=== PATIENT | male | born 1960 | race Caucasian/White ===

== ENCOUNTER 2017-04-27 10:00 | Emergency (ER) | payer BC ==
[~2017-04-27] VITALS: Ht 180.3 cm; Wt 117.7 kg
[~2017-04-27 10:00] MED LIST: ATV1 PO; PARO1TAB27 PO
[2017-04-27 10:20] VITALS: TEMP 36.7; Ht 180.3 cm; Wt 117.7 kg
[2017-04-27] MEDS ORDERED: SODIUM CHLORIDE 0.9% 1000ML 1,000 ML IV STA (11:10)
[2017-04-27] MEDS ORDERED: ASPIRIN 81 MG CHEW PO STA (11:10)
[2017-04-27] MEDS ORDERED: NITROGLYCERIN 0.4 MG SL PER TAB CHARGE SL PRN (11:15)
--- NOTE | 2017-04-27 11:23 | EMERGENCY ROOM VISIT NOTE ---
History First contact with patient: 10:56 Chief Complaint: SHOULDER PAIN Stated Complaint: L SHOULDER PAIN,NAUSEA, SENT History of Present Illness The patient is a 56 year old male who presents to the Emergency Room with complaints of an annoying pain in his left shoulder. He states he has had some tingling radiating down his left arm associated with left shoulder and arm pain for several weeks now. He states this morning when he awoke, the pain was significantly worse. He is having difficulty sitting still, as he states being still seems to worsen the pain. He states the pain seems to improve and he is able to take his mind off of it when moving around. He states the pain really flared up while leaning on his desk and putting pressure on the left arm. He states the pain is severe today, and seems to be more of a pulsation and throbbing sensation, where normally he has been experiencing more of a sharp pain. He did have an appointment scheduled with his primary care provider today to discuss the pain, but did not make it in there. He did contact his chiropractor, Dr. Boss, who he did see. He states he stood the patient up, and he was unable to determine any specific muscular problem at the time. Dr. Boss did recommend the patient come here for a chest pain workup. Patient states the pain has been persistent and getting worse, increasing in his anterior left shoulder. He states it feels like spasms or a twisting sensation. There has been no difficulty breathing, headache, dizziness, balance disturbance, recent illness, vomiting, diaphoresis, or other associated symptoms. The patient states he has been nauseated and has been dealing with a cough for the past 2 months. The patient's suddenly 3 months ago of a myocardial infarction which was unrecognized. The patient does have a significant family history of heart disease on his paternal side. He states many of his family members have had "clogged arteries" and his father at age 72 of an abdominal aortic aneurysm. He does not have any personal history of heart disease that he is aware of. The patient is a current smoker, and states he smokes 3-4 cigarettes per day. The patient has never had symptoms like this before. Review of Systems A complete 10 point review of systems was reviewed with the patient with pertinent positives and negatives as per history of present illness. All else were negative. Past Medical/Surgical History Anxiety Social History Smoking Status: Current Every Day Smoker Smokeless Tobacco Use: No Alcohol Use: occasionally Drug Use: none Marital Status: Housing Status: lives alone Occupation Status: employed Current/Historical Medications Scheduled Cyclobenzaprine Hcl (Flexeril), 10 MG PO TID Ibuprofen (Advil), 600 MG PO UD Paroxetine (Paxil), 20 MG PO QAM Allergies Coded Allergies: No Known Allergies (Unverified , 04/27/17) Physical Exam Vital Signs Date Time Temp Pulse Resp B/P (MAP) Pulse Ox O2 Delivery O2 Flow Rate FiO2 04/27/17 13:20 66 04/27/17 12:25 59 19 135/96 04/27/17 12:22 134/90 04/27/17 11:39 134/103 04/27/17 11:37 63 19 147/100 96 Room Air 04/27/17 11:28 96 Room Air 04/27/17 11:07 62 04/27/17 10:20 36.7 71 20 188/112 96 Room Air Physical Exam VITALS: Vitals are noted on the nurse's note and reviewed by myself. Vital signs stable. GENERAL: This is a 56-year-old white male, in no acute distress, nondiaphoretic , well-developed well-nourished. SKIN: The skin was without rashes, erythema, edema, or bruising. There is no tenting of the skin. Capillary reflex less than 2 seconds. HEAD: Normocephalic atraumatic. EARS: External auditory canals clear, tympanic membranes pearly dodd without erythema or effusion bilaterally. EYES: Pupils equal round and reactive to light and accommodation. Conjunctivae without injection, sclerae without icterus. Extraocular movements intact. NOSE: Patent, turbinates without inflammation or discharge. No sinus tenderness. MOUTH: Mucous membranes moist. Tonsils are not enlarged. Pharynx without erythema or exudate. Uvula midline. Airway patent. Tongue does not deviate. NECK: Supple without nuchal rigidity. No lymphadenopathy. No thyromegaly. Cervical spine is nontender. No JVD. HEART: Regular rate and rhythm without murmurs gallops or rubs. LUNGS: Clear to auscultation bilaterally without wheezes, rales or rhonchi. No dullness to percussion. No retractions or accessory muscle use. ABDOMEN: Positive bowel sounds x 4. Normal tympanic percussion. Soft, nontender, without masses or organomegaly. Daniels sign negative. No guarding or rebound tenderness. MUSCULOSKELETAL: No muscle atrophy, erythema, or edema noted. Full range of motion without joint tenderness in all extremities. No tenderness to palpation , specifically no reproducible tenderness of the left shoulder or anterior chest wall. Normal gait. Strength 5/5 throughout. NEURO: Patient was alert and oriented to person place and time. Normal sensation to light and sharp touch. Deep tendon reflexes 2+ throughout. No focal neurological deficits. Medical Decision & Procedures ER Provider Diagnostic Interpretation: L SHOULDER MIN 2 VIEWS ROUTINE CLINICAL HISTORY: 56 years-old Male presenting with left shoulder pain. TECHNIQUE: Internal rotation, external rotation, Grashey views of the left shoulder were obtained. COMPARISON: None. FINDINGS: Glenohumeral and acromioclavicular joints congruent. No acute fracture or malalignment. No advanced degenerative change. No radiographic soft tissue abnormality. IMPRESSION: No acute osseous injury. Electronically signed by: Lee Benson M.D. 04/27/2017 12:07 PM Dictated Date/Time: 04/27/2017 12:06 PM CHEST 2 VIEWS ROUTINE CLINICAL HISTORY: 56 years-old Male presenting with CHEST PAIN. TECHNIQUE: PA and lateral views of the chest were obtained. COMPARISON: None. FINDINGS: Cardiomediastinal silhouette normal. Lungs and pleural spaces clear. Degenerative changes of the thoracic spine. Right axillary surgical clips noted. Surgical clips also project over the right lung base, likely in the right breast. Upper abdomen normal. IMPRESSION: 1. No acute cardiopulmonary disease. Laboratory Results 04/27/17 11:16 Red Blood Count 5.13, Mean Corpuscular Volume 88.1, Mean Corpuscular Hemoglobin 30.4, Mean Corpuscular Hemoglobin Concent 34.5, Mean Platelet Volume 9.7, Neutrophils (%) (Auto) 67.4, Lymphocytes (%) (Auto) 22.7, Monocytes (%) (Auto) 5.8, Eosinophils (%) (Auto) 3.5, Basophils (%) (Auto) 0.3, Neutrophils # (Auto) 4.27, Lymphocytes # (Auto) 1.44, Monocytes # (Auto) 0.37, Eosinophils # (Auto) 0.22, Basophils # (Auto) 0.02 04/27/17 11:16 Test 04/27/17 11:16 04/27/17 12:52 White Blood Count 6.34 K/uL (4.8-10.8) Red Blood Count 5.13 M/uL (4.7-6.1) Hemoglobin 15.6 g/dL (14.0-18.0) Hematocrit 45.2 % (42-52) Mean Corpuscular Volume 88.1 fL (80-100) Mean Corpuscular Hemoglobin 30.4 pg (25-34) Mean Corpuscular Hemoglobin Concent 34.5 g/dl (32-36) Platelet Count 202 K/uL (130-400) Mean Platelet Volume 9.7 fL (7.4-10.4) Neutrophils (%) (Auto) 67.4 % Lymphocytes (%) (Auto) 22.7 % Monocytes (%) (Auto) 5.8 % Eosinophils (%) (Auto) 3.5 % Basophils (%) (Auto) 0.3 % Neutrophils # (Auto) 4.27 K/uL (1.4-6.5) Lymphocytes # (Auto) 1.44 K/uL (1.2-3.4) Monocytes # (Auto) 0.37 K/uL (0.11-0.59) Eosinophils # (Auto) 0.22 K/uL (0-0.5) Basophils # (Auto) 0.02 K/uL (0-0.2) RDW Standard Deviation 42.5 fL (36.4-46.3) RDW Coefficient of Variation 13.1 % (11.5-14.5) Immature Granulocyte % (Auto) 0.3 % Immature Granulocyte # (Auto) 0.02 K/uL (0.00-0.02) Prothrombin Time 10.5 SECONDS (9.0-12.0) Prothromb Time International Ratio 1.0 (0.9-1.1) Activated Partial Thromboplast Time 29.2 SECONDS (21.0-31.0) Partial Thromboplastin Ratio 1.1 Anion Gap 6.0 mmol/L (3-11) Est Creatinine Clear Calc Drug Dose 136.2 ml/min Estimated GFR () 116.3 Estimated GFR (Non- 100.4 BUN/Creatinine Ratio 20.7 (10-20) Calcium Level 9.1 mg/dl (8.5-10.1) Total Bilirubin 0.4 mg/dl (0.2-1) Aspartate Amino Transf (AST/SGOT) 19 U/L (15-37) Alanine Aminotransferase (ALT/SGPT) 32 U/L (12-78) Alkaline Phosphatase 38 U/L (45-117) Creatine Kinase MB 1.8 ng/ml (0.5-3.6) Creatine Kinase MB Ratio (0-3.0) Total Protein 7.8 gm/dl (6.4-8.2) Albumin 4.2 gm/dl (3.4-5.0) Globulin 3.6 gm/dl (2.5-4.0) Albumin/Globulin Ratio 1.2 (0.9-2) Lipase 128 U/L (73-393) Troponin I < 0.015 ng/ml (0-0.045) Medications Administered Medications (Trade) Dose Ordered Sig/Ashlie Route Start Time Stop Time Status Last Admin Dose Admin Sodium Chloride 1,000 ml @ 999 mls/hr Q1H1M STAT IV 04/27/17 11:10 04/27/17 12:10 DC 04/27/17 11:36 999 MLS/HR Nitroglycerin (Nitrostat Tab) 0.4 mg Q5M PRN SL 04/27/17 11:15 05/27/17 11:14 04/27/17 11:34 0.4 MG Aspirin (Aspirin Chew) 324 mg NOW STAT PO 04/27/17 11:10 04/27/17 11:15 DC 04/27/17 11:35 324 MG Nitroglycerin (Nitrostat Tab) 0.4 mg NOW STAT SL 04/27/17 12:20 04/27/17 12:21 DC 04/27/17 12:23 0.4 MG ECG Indication: chest pain Rate (beats per minute): 62 Rhythm: normal sinus Findings: no acute ischemic change, no ectopy Comparison ECG Date: no prior available ED Course The patient was seen and evaluated as above. IV access obtained, labs drawn. Cardiac workup initiated. The patient was given 324 mg aspirin and 0.4 mg nitro. He did report improvement in his symptoms. Initial EKG performed at 10:28 and reviewed by myself as above. Chest x-ray, left shoulder x-ray performed and reviewed by myself and radiologist as above. When the patient returns to the room, he states his left shoulder is more painful since manipulation at x-ray. I discussed options for pain management with the patient. I offered him morphine or other pain medicine versus a repeat dose of nitro in the case that this is cardiac. I discussed the benefits versus risks of these options with the patient at bedside. The patient is agreeable to trying a second dose of nitroglycerin for his symptoms. The patient was given a second dose of 0.4 mg nitro and did not report improvement in symptoms. Repeat EKG and troponin were ordered. EKG showed normal sinus rhythm with ventricular rate of 62 bpm. There is 1 PVC, but no ST elevation or obvious acute ischemia. There is no ectopy. Repeat troponin was negative. I discussed the case with Dr. Walker, who is in agreement with assessment and plan. I discussed the findings with the patient at bedside. The patient was given 30 mg Toradol for his pain. Discharge instructions were reviewed, and the patient was discharged home in good condition. Medical Decision This is a 56-year-old male patient presents to the emergency department today complaining of left shoulder pain which changed drastically this morning from the pain he has been experiencing over the past few weeks. His risk factors for cardiac etiology include age, obesity, current smoker, and positive family history. His HEART score is 4. When asked to localize, he points to an anterior aspect, and states the pain is associated with some tingling down the left arm. He states the pain is very persistent, and he describes it as a twisting or squeezing sensation. On initial evaluation, with this sudden change in pain, I did have a strong suspicion for cardiac etiology. The patient was given 0.4 mg nitroglycerin sublingual and 324 mg aspirin and did report improvement in his symptoms. Initial EKG, troponin, and other lab work was negative for acute findings of his pain. Repeat testing done at 90 minutes was negative as well. The patient did complain of worsening pain after x-ray and manipulation of the left shoulder. Due to his previous response to nitroglycerin, the patient was given a repeat dose, and did not improve with this medication. With this finding and repeat testing for cardiac etiology being negative, I have a stronger suspicion for musculoskeletal etiology. The patient was given 30 mg Toradol and will be discharged home on muscle relaxers. He was encouraged to follow-up closely with his primary care provider and consider outpatient stress test, especially if he continues to experience intermittent pain. The patient was agreeable to the assessment and plan. Etiologies such as cardiac ischemia, aortic dissection, pulmonary embolism, pneumonia, pneumothorax, musculoskeletal, infections, gastrointestinal, as well as others were entertained. I attest that I have personally reviewed the patient's current medication list. Blood Pressure Screening: Patient was found to have a slightly elevated blood pressure due to circumstances. I do not believe that the patient requires hypertension monitoring. Impression Primary Impression: Left shoulder pain Additional Impression: Chest pain Departure Information Dispostion Home / Self-Care Condition GOOD Prescriptions Cyclobenzaprine Hcl (FLEXERIL) 10 Mg Tab 10 MG PO TID, #15 TAB Prov: Bridget Powell PA-C 04/27/17 Referrals No Doctor, Assigned (PCP) Frandy Borden D.O. Taylor, William F.JR, M.D.(LESLIE) Patient Instructions ED Chest Pain Atypical Unkn Cause, ED Shoulder Pain [facility] [place] Additional Instructions You have been treated in the Emergency Department for Shoulder Pain. You have been prescribed Flexeril (cyclobenzaprine) 1 tab orally, three times per day. Do NOT exceed 30 mg (3 tabs) per day. Take your first dose at bedtime as it can make you drowsy. Always take all medications as prescribed. For pain control, you can use the following [id number] medicines (if >12 yo): Ibuprofen(Motrin, Advil) may be used for fever or pain. Use 600mg every six hours as needed. Take with food. Avoid using more than 2400mg in a 24 hour period. Do not use 2400mg per day for more than three consecutive days without physician direction. Prolonged inappropriate use can lead to stomach upset or ulcers. (AND/OR) Acetaminophen(Tylenol) may be used for fever or pain. Use 1000mg every six hours as needed. Avoid using more than 3000mg in a 24 hour period. If this is a recent injury (<24 hrs), ice can be applied to the area of pain for the first 3 days to help decrease pain and inflammation. You have been provided the number for an Orthopaedic Surgeon. You should call this number as soon as possible to establish a follow-up visit from today's Emergency Department visit. As discussed, you were worked up for cardiac etiology while here in the ED. While the acute work-up was negative, it is still possible that the symptoms are cardiac in nature. Please follow-up with your PCP tomorrow for re- evaluation. Return to the Emergency Department if your current symptoms worsen despite treatment course outlined above, or if you develop any of the following symptoms : chest pain, difficulty breathing, intractable pain despite aforementioned treatment course or new onset of numbness or tingling of the arm. Problem Qualifiers Primary Impression: Left shoulder pain Chronicity: acute Qualified Codes: M25.512 - Pain in left shoulder Additional Impression: Chest pain Chest pain type: other chest pain Qualified Codes: R07.89 - Other chest pain
[2017-04-27 11:28] VITALS: O2SAT 96
[2017-04-27] MEDS ORDERED: IBUP-1050 PO (11:29)
[2017-04-27 11:44] LABS: BASO % 0.3 %; BASO ABS # 0.02 K/uL (0-0.2); EOS % 3.5 %; EOS ABS # 0.22 K/uL (0-0.5); HEMATOCRIT 45.2 % (42-52); HEMOGLOBIN 15.6 g/dL (14.0-18.0); IG# 0.02 K/uL (0.00-0.02); LYMPH % 22.7 %; LYMPH ABS # 1.44 K/uL (1.2-3.4); MEAN CELL VOLUME 88.1 fL (80-100); MEAN CORPUSCULAR HEMOGLOBIN 30.4 pg (25-34); MEAN CORPUSCULAR HGB CONC 34.5 g/dl (32-36); MEAN PLATELET VOLUME 9.7 fL (7.4-10.4); MONO % 5.8 %; MONO ABS # 0.37 K/uL (0.11-0.59); NEUT % 67.4 %; NEUT ABS # 4.27 K/uL (1.4-6.5); PLATELET COUNT 202 K/uL (130-400); RED CELL DISTRIBUTION WIDTH CV 13.1 % (11.5-14.5); RED CELL DISTRIBUTION WIDTH SD 42.5 fL (36.4-46.3); WHITE BLOOD COUNT 6.34 K/uL (4.8-10.8)
[2017-04-27 11:52] LABS: PTT PATIENT 29.2 SECONDS (21.0-31.0)
[2017-04-27 12:04] LABS: ALBUMIN 4.2 gm/dl (3.4-5.0); ALT/SGPT 32 U/L (12-78); BLOOD UREA NITROGEN 16 mg/dl (7-18); CALCIUM 9.1 mg/dl (8.5-10.1); CARBON DIOXIDE 27 mmol/L (21-32); CREATININE 0.79 mg/dl (0.60-1.40); GLUCOSE 88 mg/dl (70-99); LIPASE 128 U/L (73-393); SODIUM 140 mmol/L (136-145)
--- NOTE | 2017-04-27 12:08 | DIAGNOSTIC IMAGING REPORT ---
L SHOULDER MIN 2 VIEWS ROUTINE CLINICAL HISTORY: 56 years-old Male presenting with left shoulder pain. TECHNIQUE: Internal rotation, external rotation, Grashey views of the left shoulder were obtained. COMPARISON: None. FINDINGS: Glenohumeral and acromioclavicular joints congruent. No acute fracture or malalignment. No advanced degenerative change. No radiographic soft tissue abnormality. IMPRESSION: No acute osseous injury. Electronically signed by: Lee Benson M.D. 04/27/2017 12:07 PM Dictated Date/Time: 04/27/2017 12:06 PM
--- NOTE | 2017-04-27 12:08 | DIAGNOSTIC IMAGING REPORT ---
CHEST 2 VIEWS ROUTINE CLINICAL HISTORY: 56 years-old Male presenting with CHEST PAIN. TECHNIQUE: PA and lateral views of the chest were obtained. COMPARISON: None. FINDINGS: Cardiomediastinal silhouette normal. Lungs and pleural spaces clear. Degenerative changes of the thoracic spine. Right axillary surgical clips noted. Surgical clips also project over the right lung base, likely in the right breast. Upper abdomen normal. IMPRESSION: 1. No acute cardiopulmonary disease. Electronically signed by: Lee Benson M.D. 04/27/2017 12:06 PM Dictated Date/Time: 04/27/2017 12:05 PM
[2017-04-27 12:09] LABS: ALKALINE PHOSPHATASE 38 U/L (45-117); AST/SGOT 19 U/L (15-37); CKMB 1.8 ng/ml (0.5-3.6); TOTAL PROTEIN 7.8 gm/dl (6.4-8.2)
[2017-04-27] MEDS ORDERED: NITROGLYCERIN 0.4 MG SL PER TAB CHARGE SL STA (12:20)
[2017-04-27] MEDS ORDERED: KETOROLAC TROMETHAMINE 30 MG/ML VIAL IV STA (14:01)
[2017-04-27] MEDS ORDERED: CYCL10TA6 PO (14:03)
[2017-04-27 14:40] VITALS: BP 135/96; PULSE 58; O2SAT 98
== END 2017-04-27 14:42 | disposition home or self-care (01) ==
LOC: C.EDB 10:01 → C.EDC 14:42
DX: M25.512 Pain in left shoulder (principal); R07.89 Other chest pain; F17.210 Nicotine dependence, cigarettes, uncomplicated; F41.9 Anxiety disorder, unspecified; E66.9 Obesity, unspecified; Z82.49 Family history of ischemic heart disease and other diseases of the circulatory system